=== PATIENT | female | born 1985 | race Caucasian/White ===

== ENCOUNTER 2025-07-12 07:58 | Emergency (ER) | payer OTHER, SELFPAY ==
[2025-07-12 08:15] VITALS: BP 126/77; PULSE 75; RESP 14; TEMP 36.9; O2SAT 99; BMI 20.3
[2025-07-12 08:24] VITALS: BMI 20.3
--- NOTE | 2025-07-12 08:25 | XR_ITS ---
PROCEDURE INFORMATION: Exam: XR Left Ankle Exam date and time: 07/12/2025 8:34 AM Age: 39 years old Clinical indication: Pain; Ankle; Left; Additional info: [place] a pop in ankle after jumping off a branch. TECHNIQUE: Imaging protocol: Radiologic exam of the left ankle. Views: 3 or more views. AP, lateral and mortise views. COMPARISON: CR XR ANKLE LT MIN 3V 07/12/2025 8:34 AM FINDINGS: Bones/joints: Bone island in the anterior talus. No acute fracture. No dislocation. Normal alignment of the ankle mortise. Soft tissues: Normal. IMPRESSION: There is no evidence of acute fracture or malalignment.
--- NOTE | 2025-07-12 08:25 | XR_ITS ---
PROCEDURE INFORMATION: Exam: XR Left Foot Exam date and time: 07/12/2025 8:34 AM Age: 39 years old Clinical indication: Pain; Foot; Left; Additional info: [place] a pop in ankle after jumping off a branch. TECHNIQUE: Imaging protocol: Radiologic exam of the left foot. Views: 3 or more views. AP, lateral and oblique views COMPARISON: CR XR FOOT LT MIN 3V 07/12/2025 8:34 AM FINDINGS: Bones/joints: Normal. Soft tissues: Normal. IMPRESSION: There is no evidence of acute fracture or malalignment.
--- NOTE | 2025-07-12 08:25 | XR_ITS ---
PROCEDURE INFORMATION: Exam: XR Left Tibia and Fibula Exam date and time: 07/12/2025 8:34 AM Age: 39 years old Clinical indication: Pain; Ankle; Left; Additional info: [place] a pop in ankle after jumping off a branch. TECHNIQUE: Imaging protocol: Radiologic exam of the left tibia and fibula. Views: 2 views. AP and lateral views COMPARISON: CR XR TIBIA FIBULA LT 2V 07/12/2025 8:34 AM FINDINGS: Bones/joints: Normal. Soft tissues: Normal. IMPRESSION: There is no evidence of acute fracture or malalignment.
--- NOTE | 2025-07-12 08:49 | ED_ITS ---
Discharge Plan Disposition Patient Disposition: Home, Self-Care Prescriptions Prescriptions: New acetaminophen [Tylenol] 325 mg tablet 325 mg PO Q6H PRN (Reason: fever or pain) Qty: 60 0RF Referrals Follow up/Referrals: Jay Ackerman DO [Staff Physician, Orthopedics] - See instructions Referral Note: pain in heel following accident, negative plain films, follow up to assess improvement Bradley Rubin [Primary Care Provider, Medical] - See instructions Activity Restrictions/Add. Instructions Additional Instructions/Restrictions: You were seen in the emergency department for ankle pain. Your x-rays were negative. If symptoms continue or fail to improve please follow-up in orthopedics. If you have persistent pain, please use crutches to reduce weightbearing. If symptoms worsen, or new symptoms develop, please return to the emergency department. Clinical Impressions Clinical Impression: Acute ankle pain Stand Alone Forms Stand Alone Forms: Work/School Release Instructions Patient Instructions: DI for Ankle Pain Print Language Print Language: [place] Discharge ED Provider: Kong Martínez Adult [facility] General Chief complaint: Extremity Injury, Lower Stated complaint: AO-07/11/25-Pain L ankle Time Seen by Provider: 07/12/25 08:37 Mode of Arrival: Ambulatory Source of Information: Patient Description of Symptoms (Recalled from ER Triage Doc. by RN): pt states she jumped off a piece of wood yesterday and came down wrong on her L ankle. Pt reports feeling a pop. pt c/o L ankle pain that radiates proximal to her posterior tib/fib region and distal to her foot. ROM intact but painful, positive pedal pulses, ankle edema/ecchymosis. pt states her pain is 8/10 with wt baring and 4/10 when resting. pt has not taken anything for the pain today. History of Present Illness HPI narrative: This patient is a 39-year-old female with minimal reported past medical history who reports that she jumped approximately 2 feet down from a tree limb yesterday and heard a pop coming from the left ankle. She has been able to ambulate by walking on her forefoot, she has pain with weightbearing on the heel. She does have pain with palpation of the lateral aspect of the foot, mild pain with compression of the calcaneus. She has normal flexion of the foot with compression of the gastrocnemius. Related Data Previous Rx's ?Medication ?Instructions ?Recorded acetaminophen 325 mg tablet 325 mg PO Q6H PRN fever or pain 07/12/25 (Tylenol) #60 tabs Allergies Allergy/AdvReac Type Severity Reaction Status Date / Time clindamycin Allergy Rash Verified 07/12/25 08:25 [facility] Disclaimer: The information contained in this section may have been updated after the patient was seen, as this information can be updated by other users. Social History Smoking Status: Current every day smoker alcohol intake: never current occupational status: unemployed Travel in the last 8 weeks?: None ROS Obtained: Yes All systems reviewed & no additional complaints except as documented Physical Exam General General appearance: alert and in no apparent distress Head Head exam: atraumatic and normocephalic Eye Eye exam: Present normal appearance, PERRL and EOMI ENT ENT exam: Present normal exam and normal external ear exam Neck Neck exam: Present normal inspection, full ROM and trachea midline Chest Chest inspection: Present normal inspection and symmetric chest wall rise; Absent tenderness Respiratory Respiratory exam: Absent respiratory distress Cardiovascular Cardiovascular exam: Present regular rate, normal rhythm and other (appears warm and well perfused) Abdominal Exam Abdominal exam: Absent distention or tenderness Extremities Exam Extremities exam: Present normal inspection and full ROM Neurological Exam Neurological exam: Present alert and oriented X3 Psychiatric Psychiatric exam: Present normal affect Skin Skin exam: Present warm and dry Medical Decision Making Medical Records Medical records reviewed: Yes I reviewed the patient's medical records. Screening: Per USPSTF and CDC recommendations, given the prevalence of disease in our region, it is our hospital?s policy to screen for HIV and viral Hepatitis for all patients aged 18 and over and those with ongoing risk factors. Himanshu Inquiry Pt receiving controlled substance: No Himanshu was queried for this patient: No Vital Signs: 07/12/25 08:15 07/12/25 10:02 Temperature 98.4 F 98.4 F Temperature Source Oral Oral Pulse Rate 75 Pulse Rate [Left] 75 Respiratory Rate 14 14 Blood Pressure 126/77 Blood Pressure [Right Arm] 126/77 Blood Pressure Mean [Right Arm] 93 Blood Pressure Source Automatic Cuff Blood Pressure Source [Right Arm] Automatic Cuff Blood Pressure Position Sitting Blood Pressure Position [Right Arm] Sitting 02 Sat by Pulse Oximetry 99 Oxygen Delivery Method Room Air Room Air Lab Data Lab results reviewed: Yes I reviewed the patient's lab results. Orders (Tests/Meds): ORDERS Category Date Time Status XR ankle LT min 3V Stat Exams 07/12/25 08:25 Completed XR foot LT min 3V Stat Exams 07/12/25 08:25 Completed XR tibia fibula LT 2V Stat Exams 07/12/25 08:25 Completed Medical Decision Narrative: MDM In summary, this 39-year-old female presents to the emergency department today with ankle pain. Initial evaluation the patient comfortable, hemodynamically stable. Differential diagnosis includes but is not limited to fracture, dislocation, sprain, Achilles tendon rupture, plantar fascia rupture. Based on these concerns, I ordered plain films of the lower extremity. Patient is currently able to ambulate which is very reassuring. She does have mild pain with compression of the calcaneus and most notably pain with compression of the Achilles tendon. X-rays of the lower extremity personally interpreted by me showed no acute fracture or dislocation. While it is possible that the patient might have an acute calcaneal fracture, she has minimal swelling and only mild pain with compression of the calcaneus and so I feel that this is less likely I do not think a CT scan is indicated at this time. I think it is most likely the patient has a small tear along the Achilles tendon. I discussed the risks and benefits of CT scan of the lower extremity with the patient and we agreed that it was appropriate for her to follow-up in clinic and if symptoms had not improved consider further imaging at that time. The patient was comfortable with this plan. She was placed in a walking boot and instructed to use crutches if she had any worsening pain with ambulation. Critical Care Critical Care Time Critical Care Time: No
[2025-07-12 10:02] VITALS: BP 126/77; PULSE 75; RESP 14; TEMP 36.9; O2SAT 99
== END 2025-07-12 10:03 | disposition home or self-care (01) ==
PROVIDERS: Emergency Provider Student in an Organized Health Care Education/Training Program; PCP Family Medicine
DX: M25.572 Pain in left ankle and joints of left foot (principal); W17.89XA Other fall from one level to another, initial encounter
CPT/HCPCS: 73590; 73610; 73630; 99283